=== PATIENT | female | born 1945 | race Two or more races ===

== ENCOUNTER 2021-08-11 14:44 | Inpatient (IN) | payer OTHER, MEDICARE, MEDICAID ==
[~2021-08-11] VITALS: Ht 170.2 cm; Wt 67.6 kg
[2021-08-11 15:44] LABS: Basophils # (auto) 0.1 10 ^3/uL (0-0.2); Basophils % (auto) 0.9 % (0.0-2.0); Eosinophils # (auto) 0.1 10 ^3/uL (0-0.8); Eosinophils % (auto) 0.8 % (0.0-7.0); Hematocrit 31.3 % (36.0-46.0); Hemoglobin 9.8 g/dL (12.2-16.2); Lymphocytes # (auto) 1.7 10 ^3/uL (0.4-5.4); Lymphocytes % (auto) 17.6 % (10.0-50.0); Mean Corpuscular Hemoglobin 23.6 pg (28.0-32.0); Mean Corpuscular Hgb Conc. 31.3 g/dL (32.0-36.0); Mean Corpuscular Volume 75.3 fL (80.0-100.0); Monocytes # (auto) 0.9 10 ^3/uL (0-1.3); Neutrophils % (auto) 71.7 % (37.0-80.0); Nucleated Red Blood Cells % 0.1 %; Red Blood Cells 4.16 10^6/uL (4.0-5.20); Red Cell Distribution Width 16.7 % (11.8-14.3); White Blood Cell 9.7 10^3/uL (4.4-10.8)
[2021-08-11 15:54] LABS: Anion Gap 8 (5-15); Blood Urea Nitrogen 10 mg/dL (7-18); Calcium 7.8 mg/dL (8.5-10.1); Carbon Dioxide 29 mmol/L (21-32); Chloride 100 mmol/L (98-107); Glucose 119 mg/dL (74-106); Potassium 3.2 mmol/L (3.5-5.1); Sodium 137 mmol/L (136-145)
[2021-08-11 15:56] LABS: Alanine Aminotransferase 87 U/L (13-56); Aspartate Aminotransferase 37 U/L (15-37); BUN/Creatinine Ratio 12.3; GFR African American 89 mL/min; GFR Non-African American 74 mL/min
[2021-08-11 15:58] LABS: Alkaline Phosphatase 91 U/L (45-117); Bilirubin, Total 0.5 mg/dL (0.2-1.0); Total Protein 6.5 g/dL (6.4-8.2)
[2021-08-11] MEDS ORDERED: POTASSIUM CHL 20 Meq TABLET PO ONE (17:45)
[2021-08-11] MEDS ORDERED: ceFAZolin 1GM/50ML 50 ML IV ONE (17:45)
[2021-08-11] MEDS ORDERED: NITROGLYCERIN 0.4 MG SL TAB SL PRN (17:45)
[2021-08-11] MEDS ORDERED: MORPHINE SULFATE INJECTION 2 MG/ML SYRG IV PRN (17:45)
[2021-08-11] MEDS ORDERED: ONDANSETRON HCL 4 MG/2 ML VIAL IV PRN (17:45)
[2021-08-11] MEDS ORDERED: FUROSEMIDE 40 MG/4 ML VIAL IV ONE (17:45)
[2021-08-11] MEDS ORDERED: LISINOPRIL 10 MG TAB PO ONE (18:00)
[2021-08-11] MEDS: ATORVASTATIN 20 MG TAB PO SCH (18:15)
[2021-08-11] MEDS: ALBUTEROL SULF 2.5 MG/0.5ML(0.5%) NEB SOLN NEB PRN (18:22)
[2021-08-11 18:29] LABS: Urine Bacteria NONE SEEN /hpf (None Seen); Urine Blood Negative /uL (Negative); Urine Specific Gravity 1.007 (1.001-1.035); Urine WBC 3 /hpf (0 - 5)
[2021-08-11 21:00] VITALS: BP 153/73
[2021-08-11 22:00] VITALS: BP 153/73
[2021-08-11] MEDS: ACETAMINOPHEN 500 MG TAB PO PRN (22:28)
[2021-08-11] MEDS: CARVEDILOL 3.125 MG TAB PO SCH (22:28)
[2021-08-11] MEDS ORDERED: LIDO2SOL18 MT (23:30)
[2021-08-11] MEDS ORDERED: BUSP5TAB51 PO (23:30)
[2021-08-11] MEDS ORDERED: ACET-1156 PO (23:30)
[2021-08-11] MEDS ORDERED: CHOL20007 OR (23:30)
[2021-08-11] MEDS ORDERED: [UNRECOGNIZED DRUG - CODE] IN (23:30)
[2021-08-11] MEDS ORDERED: DEXA4TAB PO (23:30)
[2021-08-11] MEDS ORDERED: IBUP600T27 PO (23:30)
[2021-08-11] MEDS ORDERED: TRAM50TA2 PO (23:30)
[2021-08-11] MEDS ORDERED: DIPH2.5T16 PO (23:30)
[2021-08-11] MEDS ORDERED: PRED10TA PO (23:30)
[2021-08-11] MEDS ORDERED: NITR0.4S29 SL (23:30)
[2021-08-11] MEDS ORDERED: NYS5LQ MT (23:30)
[2021-08-11] MEDS ORDERED: GABA-339 PO (23:30)
[2021-08-11] MEDS ORDERED: TRIA0.5C TOP (23:30)
[2021-08-11] MEDS ORDERED: ONDA-144 PO (23:30)
[2021-08-11] MEDS ORDERED: PANT40TA2 PO (23:30)
[2021-08-11] MEDS ORDERED: LORA-622 PO (23:30)
[2021-08-11] MEDS ORDERED: GUAI600T76 PO (23:30)
[2021-08-11] MEDS ORDERED: DIAZ10TA3 PO (23:30)
[2021-08-11] MEDS ORDERED: ISOS1TAB28 PO (23:30)
[2021-08-11] MEDS ORDERED: TIOT1AER2 IN (23:30)
[2021-08-11] MEDS ORDERED: DIPH25CA29 PO (23:30)
[2021-08-11] MEDS ORDERED: AMLO-489 PO (23:30)
[2021-08-11] MEDS ORDERED: [UNRECOGNIZED DRUG - CODE] TD (23:30)
[2021-08-11] MEDS ORDERED: RANO500T3 PO (23:30)
[2021-08-11] MEDS ORDERED: MONT-8 OR (23:30)
[2021-08-11] MEDS ORDERED: METO-158 PO (23:30)
[2021-08-11] MEDS ORDERED: ZOLP5TAB5 PO (23:30)
[2021-08-12] MEDS: ALBUTEROL SULF 2.5 MG/0.5ML(0.5%) NEB SOLN NEB PRN (01:07)
[2021-08-12] MEDS: ceFAZolin 1GM/50ML 50 ML IV SCH ×3 (02:07→19:51)
[2021-08-12 05:00] VITALS: BP 109/54
[2021-08-12 06:49] LABS: Basophils # (auto) 0 10 ^3/uL (0-0.2); Eosinophils # (auto) 0.1 10 ^3/uL (0-0.8); Lymphocytes # (auto) 2.7 10 ^3/uL (0.4-5.4); Red Cell Distribution Width 16.6 % (11.8-14.3)
[2021-08-12 06:50] LABS: Basophils % (auto) 0.6 % (0.0-2.0); Eosinophils % (auto) 1.7 % (0.0-7.0); Hematocrit 29.4 % (36.0-46.0); Hemoglobin 9.4 g/dL (12.2-16.2); Lymphocytes % (auto) 32.6 % (10.0-50.0); Mean Corpuscular Hemoglobin 23.8 pg (28.0-32.0); Mean Corpuscular Hgb Conc. 31.8 g/dL (32.0-36.0); Mean Corpuscular Volume 74.9 fL (80.0-100.0); Monocytes % (auto) 11.5 % (0.0-12.0); Neutrophils # (auto) 4.5 10 ^3/uL (1.6-8.6); Neutrophils % (auto) 53.6 % (37.0-80.0); Nucleated Red Blood Cells % 0.2 %; Red Blood Cells 3.93 10^6/uL (4.0-5.20); White Blood Cell 8.3 10^3/uL (4.4-10.8)
[2021-08-12 07:02] LABS: Calcium 8.1 mg/dL (8.5-10.1)
[2021-08-12 09:00] VITALS: BP 112/46
[2021-08-12] MEDS ORDERED: LISINOPRIL 10 MG TAB PO SCH (10:00)
[2021-08-12] MEDS ORDERED: POTASSIUM CHL 20 Meq TABLET PO ONE (11:45)
[2021-08-12] MEDS: IPRATROPIUM BROM 0.5 MG/2.5ML INH SOL NEB SCH ×2 (12:00→20:09)
[2021-08-12] MEDS: ALBUTEROL SULF 2.5 MG/0.5ML(0.5%) NEB SOLN NEB SCH ×2 (12:00→20:09)
[2021-08-12] MEDS ORDERED: IPRATROPIUM BROM 0.5 MG/2.5ML INH SOL ONE (12:04)
[2021-08-12] MEDS: FUROSEMIDE 40 MG/4 ML VIAL IV SCH (12:09)
[2021-08-12] MEDS: CARVEDILOL 3.125 MG TAB PO SCH ×2 (12:10→22:02)
[2021-08-12] MEDS: ASPirin 81 mg TAB PO SCH (12:11)
[2021-08-12] MEDS: POTASSIUM CHL 20 Meq TABLET PO SCH (12:11)
[2021-08-12] MEDS: ENOXAPARIN SOD 40 MG/0.4 ML SYRINGE SC SCH (12:12)
[2021-08-12 13:00] VITALS: BP 132/42
[2021-08-12] MEDS ORDERED: ALBUTEROL SULF 2.5 MG/0.5ML(0.5%) NEB SOLN NEB PRN (16:30)
[2021-08-12 17:10] VITALS: BP 100/44
[2021-08-12 22:00] VITALS: BP 133/59
[2021-08-12] MEDS: ATORVASTATIN 20 MG TAB PO SCH (22:02)
[2021-08-13] MEDS: ALBUTEROL SULF 2.5 MG/0.5ML(0.5%) NEB SOLN NEB SCH ×4 (00:25→17:50)
[2021-08-13] MEDS: IPRATROPIUM BROM 0.5 MG/2.5ML INH SOL NEB SCH ×4 (00:25→17:50)
[2021-08-13] MEDS: ceFAZolin 1GM/50ML 50 ML IV SCH ×3 (02:22→17:59)
[2021-08-13 04:41] VITALS: BP 153/65
[2021-08-13 07:11] LABS: BUN/Creatinine Ratio 19.5; Calcium 8.6 mg/dL (8.5-10.1)
[2021-08-13 07:44] LABS: Potassium 2.9 mmol/L (3.5-5.1)
[2021-08-13] MEDS ORDERED: POTASSIUM CHL 20 Meq TABLET PO ONE (08:30)
[2021-08-13 09:00] VITALS: BP 146/77
[2021-08-13] MEDS: FUROSEMIDE 40 MG/4 ML VIAL IV SCH (09:40)
[2021-08-13] MEDS: ASPirin 81 mg TAB PO SCH (09:41)
[2021-08-13] MEDS: CARVEDILOL 3.125 MG TAB PO SCH ×2 (09:41→21:38)
[2021-08-13] MEDS: POTASSIUM CHL 20 Meq TABLET PO SCH (09:41)
[2021-08-13] MEDS: ENOXAPARIN SOD 40 MG/0.4 ML SYRINGE SC SCH (09:42)
[2021-08-13] MEDS: LISINOPRIL 10 MG TAB PO SCH (09:42)
[2021-08-13] MEDS ORDERED: IPRATROPIUM BROM 0.5 MG/2.5ML INH SOL NEB SCH (11:45)
[2021-08-13] MEDS ORDERED: ALBUTEROL SULF 2.5 MG/0.5ML(0.5%) NEB SOLN NEB SCH (11:45)
[2021-08-13] MEDS: LORazepam 2MG/ML-1ML VIAL IV PRN (12:16)
[2021-08-13 13:00] VITALS: BP 154/79
[2021-08-13 14:35] LABS: Albumin 3.3 g/dL (3.4-5.0); Potassium 3.4 mmol/L (3.5-5.1)
[2021-08-13 14:39] LABS: BUN/Creatinine Ratio 15.2; Bilirubin, Total 0.5 mg/dL (0.2-1.0); Total Protein 7.6 g/dL (6.4-8.2)
[2021-08-13] MEDS ORDERED: MAGNESIUM OXIDE 400 MG TAB PO ONE (16:15)
[2021-08-13 17:00] VITALS: BP 116/68
[2021-08-13] MEDS: MAGNESIUM OXIDE 400 MG TAB PO SCH (21:39)
[2021-08-13] MEDS: ATORVASTATIN 20 MG TAB PO SCH (21:39)
[2021-08-13 22:00] VITALS: BP 113/71
[2021-08-14] MEDS: LORazepam 2MG/ML-1ML VIAL IV PRN ×2 (00:14→21:10)
[2021-08-14] MEDS: ALBUTEROL SULF 2.5 MG/0.5ML(0.5%) NEB SOLN NEB SCH ×6 (00:29→19:17)
[2021-08-14] MEDS: IPRATROPIUM BROM 0.5 MG/2.5ML INH SOL NEB SCH ×6 (00:29→19:17)
[2021-08-14] MEDS: ceFAZolin 1GM/50ML 50 ML IV SCH ×3 (01:29→18:05)
[2021-08-14 05:00] VITALS: BP 102/67
[2021-08-14 09:00] VITALS: BP 91/56
[2021-08-14] MEDS: FUROSEMIDE 40 MG/4 ML VIAL IV SCH (09:47)
[2021-08-14] MEDS: ASPirin 81 mg TAB PO SCH (09:47)
[2021-08-14] MEDS: POTASSIUM CHL 20 Meq TABLET PO SCH (09:48)
[2021-08-14] MEDS: ENOXAPARIN SOD 40 MG/0.4 ML SYRINGE SC SCH (09:48)
[2021-08-14] MEDS: MAGNESIUM OXIDE 400 MG TAB PO SCH ×2 (09:48→21:09)
[2021-08-14] MEDS: CARVEDILOL 3.125 MG TAB PO SCH ×2 (10:00→21:08)
[2021-08-14] MEDS: LISINOPRIL 10 MG TAB PO SCH (10:00)
[2021-08-14 13:00] VITALS: BP 94/54
[2021-08-14 16:39] VITALS: BP 120/60
[2021-08-14 20:30] VITALS: BP 133/64
[2021-08-14] MEDS: ATORVASTATIN 20 MG TAB PO SCH (21:08)
[2021-08-15] MEDS: IPRATROPIUM BROM 0.5 MG/2.5ML INH SOL NEB SCH ×7 (02:00→22:33)
[2021-08-15] MEDS: ALBUTEROL SULF 2.5 MG/0.5ML(0.5%) NEB SOLN NEB SCH ×7 (02:00→22:33)
[2021-08-15] MEDS: ceFAZolin 1GM/50ML 50 ML IV SCH ×2 (02:23→09:41)
[2021-08-15 09:00] VITALS: BP 110/64
[2021-08-15] MEDS: ASPirin 81 mg TAB PO SCH (09:43)
[2021-08-15] MEDS: CARVEDILOL 3.125 MG TAB PO SCH (09:43)
[2021-08-15] MEDS: FUROSEMIDE 40 MG/4 ML VIAL IV SCH (09:43)
[2021-08-15] MEDS: POTASSIUM CHL 20 Meq TABLET PO SCH (09:44)
[2021-08-15] MEDS: MAGNESIUM OXIDE 400 MG TAB PO SCH (09:44)
[2021-08-15] MEDS: LORazepam 2MG/ML-1ML VIAL IV PRN (09:44)
[2021-08-15] MEDS: ENOXAPARIN SOD 40 MG/0.4 ML SYRINGE SC SCH (09:44)
[2021-08-15] MEDS: LISINOPRIL 10 MG TAB PO SCH (09:44)
[2021-08-15 13:00] VITALS: BP 105/63
[2021-08-15 17:00] VITALS: BP 101/65
[2021-08-15 20:00] VITALS: BP 105/63
[2021-08-16] VITALS (7 sets, daily range): BP systolic 87–108; BP diastolic 48–69
[2021-08-16] MEDS: ALBUTEROL SULF 2.5 MG/0.5ML(0.5%) NEB SOLN NEB SCH ×6 (01:27→22:59)
[2021-08-16] MEDS: IPRATROPIUM BROM 0.5 MG/2.5ML INH SOL NEB SCH ×6 (01:27→22:59)
[2021-08-16] MEDS: CARVEDILOL 3.125 MG TAB PO SCH ×3 (01:43→22:01)
[2021-08-16] MEDS: ATORVASTATIN 20 MG TAB PO SCH ×2 (01:45→22:01)
[2021-08-16] MEDS: MAGNESIUM OXIDE 400 MG TAB PO SCH ×3 (01:45→22:01)
[2021-08-16] MEDS: CEPHALEXIN 250 MG CAP PO SCH ×4 (01:45→22:01)
[2021-08-16] MEDS: LISINOPRIL 10 MG TAB PO SCH (10:00)
[2021-08-16] MEDS: FUROSEMIDE 40 MG TAB PO SCH (10:00)
[2021-08-16] MEDS: ASPirin 81 mg TAB PO SCH (10:28)
[2021-08-16] MEDS: POTASSIUM CHL 20 Meq TABLET PO SCH (10:28)
[2021-08-16] MEDS: ENOXAPARIN SOD 40 MG/0.4 ML SYRINGE SC SCH (10:29)
[2021-08-16] MEDS ORDERED: POTA-220 PO (11:48)
[2021-08-16] MEDS ORDERED: FURO40TA4 PO (11:48)
[2021-08-16] MEDS ORDERED: CEPH250C28 PO (11:48)
[2021-08-17] VITALS (7 sets, daily range): BP systolic 101–137; BP diastolic 49–84
[2021-08-17] MEDS: ALBUTEROL SULF 2.5 MG/0.5ML(0.5%) NEB SOLN NEB SCH ×6 (04:47→21:40)
[2021-08-17] MEDS: IPRATROPIUM BROM 0.5 MG/2.5ML INH SOL NEB SCH ×6 (04:47→21:40)
[2021-08-17] MEDS: CEPHALEXIN 250 MG CAP PO SCH ×3 (05:16→21:10)
[2021-08-17] MEDS: FUROSEMIDE 40 MG TAB PO SCH (10:00)
[2021-08-17] MEDS: CARVEDILOL 3.125 MG TAB PO SCH ×3 (10:00→23:38)
[2021-08-17] MEDS: LISINOPRIL 10 MG TAB PO SCH (10:00)
[2021-08-17] MEDS: ASPirin 81 mg TAB PO SCH (10:49)
[2021-08-17] MEDS: POTASSIUM CHL 20 Meq TABLET PO SCH (10:55)
[2021-08-17] MEDS: ENOXAPARIN SOD 40 MG/0.4 ML SYRINGE SC SCH (10:56)
[2021-08-17] MEDS: MAGNESIUM OXIDE 400 MG TAB PO SCH ×2 (10:56→21:10)
[2021-08-17] MEDS: ACETAMINOPHEN 500 MG TAB PO PRN ×3 (15:38→23:39)
[2021-08-17] MEDS: ATORVASTATIN 20 MG TAB PO SCH (21:10)
[2021-08-18] MEDS: IPRATROPIUM BROM 0.5 MG/2.5ML INH SOL NEB SCH ×4 (02:38→14:07)
[2021-08-18] MEDS: ALBUTEROL SULF 2.5 MG/0.5ML(0.5%) NEB SOLN NEB SCH ×4 (02:38→14:07)
[2021-08-18 05:00] VITALS: BP 93/56
[2021-08-18] MEDS: CEPHALEXIN 250 MG CAP PO SCH (05:52)
[2021-08-18 05:58] LABS: Basophils # (auto) 0.1 10 ^3/uL (0-0.2); Basophils % (auto) 0.9 % (0.0-2.0); Eosinophils # (auto) 0.2 10 ^3/uL (0-0.8); Eosinophils % (auto) 2.3 % (0.0-7.0); Hematocrit 34.5 % (36.0-46.0); Hemoglobin 10.7 g/dL (12.2-16.2); Lymphocytes % (auto) 24.9 % (10.0-50.0); Mean Corpuscular Hemoglobin 23.7 pg (28.0-32.0); Mean Corpuscular Volume 76.4 fL (80.0-100.0); Monocytes # (auto) 0.8 10 ^3/uL (0-1.3); Monocytes % (auto) 10.5 % (0.0-12.0); Neutrophils # (auto) 4.8 10 ^3/uL (1.6-8.6); Neutrophils % (auto) 61.4 % (37.0-80.0); Nucleated Red Blood Cells % 0.1 %; Red Blood Cells 4.52 10^6/uL (4.0-5.20); Red Cell Distribution Width 16.4 % (11.8-14.3); White Blood Cell 7.9 10^3/uL (4.4-10.8)
[2021-08-18 06:26] LABS: Anion Gap 4 (5-15); BUN/Creatinine Ratio 24.7; Blood Urea Nitrogen 21 mg/dL (7-18); Calcium 9.2 mg/dL (8.5-10.1); Carbon Dioxide 25 mmol/L (21-32); Chloride 100 mmol/L (98-107); GFR African American 84 mL/min; GFR Non-African American 70 mL/min; Glucose 118 mg/dL (74-106); Potassium 4.7 mmol/L (3.5-5.1); Sodium 129 mmol/L (136-145)
[2021-08-18 09:00] VITALS: BP 96/61
[2021-08-18] MEDS: ASPirin 81 mg TAB PO SCH (09:12)
[2021-08-18] MEDS: POTASSIUM CHL 20 Meq TABLET PO SCH (09:12)
[2021-08-18] MEDS: ENOXAPARIN SOD 40 MG/0.4 ML SYRINGE SC SCH (09:14)
[2021-08-18] MEDS: MAGNESIUM OXIDE 400 MG TAB PO SCH (09:14)
[2021-08-18] MEDS ORDERED: LEVA3NEB IN (10:39)
[2021-08-18 13:00] VITALS: BP 109/72
== END 2021-08-18 12:50 | disposition home or self-care (01) | DRG 280 ==
LOC: EDBD 14:44 → ER 15:00 → TELE 17:42 → TELE-WESTW 20:33 → WEST WING 08-18 04:05
PROVIDERS: ADMIT Internal Medicine; ATTEND Internal Medicine
DX: I11.0 Hypertensive heart disease with heart failure (principal); I21.A1 Myocardial infarction type 2; I50.43 Acute on chronic combined systolic (congestive) and diastolic (congestive) heart failure; J44.1 Chronic obstructive pulmonary disease with (acute) exacerbation; J96.10 Chronic respiratory failure, unspecified whether with hypoxia or hypercapnia; L03.115 Cellulitis of right lower limb; L03.116 Cellulitis of left lower limb; Z66 Do not resuscitate; I73.9 Peripheral vascular disease, unspecified; D64.9 Anemia, unspecified; I25.10 Atherosclerotic heart disease of native coronary artery without angina pectoris; Z20.822 Contact with and (suspected) exposure to COVID-19; R79.89 Other specified abnormal findings of blood chemistry; F41.9 Anxiety disorder, unspecified; Z87.891 Personal history of nicotine dependence; Z79.899 Other long term (current) drug therapy; Z95.1 Presence of aortocoronary bypass graft
CPT/HCPCS: 36415; 36600; 71045; 80048; 80053; 81001; 82805; 83036; 83735; 83880; 84443; 84484; 85025; 87426; 87493; 93005; 93306; 94640; 96365; 96375; 97163; G0378; J0690